=== PATIENT | male | born 1980 | race Caucasian/White ===

== ENCOUNTER → 2024-03-28 | Outpatient (CLI) | payer OTHER | LOC: COL.RAD 10:11 | DX: N50.3 Cyst of epididymis (principal); N50.89 Other specified disorders of the male genital organs ==

== ENCOUNTER → 2024-04-14 | Outpatient (CLI) | payer OTHER | LOC: COL.RAD 14:56 | DX: K40.90 Unilateral inguinal hernia, without obstruction or gangrene, not specified as recurrent (principal) ==